=== PATIENT | female | born 1985 | race Caucasian/White ===

== ENCOUNTER 2020-08-01 19:57 | Emergency (ER) | payer SELFPAY ==
[~2020-08-01] VITALS: Ht 154.9 cm; Wt 53.1 kg
[2020-08-01 20:08] VITALS: BP 96/60
[2020-08-01 20:44] LABS: APPEARANCE,URINE HAZY (CLEAR); BILIRUBIN,URINE NEGATIVE (NEGATIVE); BLOOD, URINE 1+ (NEGATIVE); COLOR,URINE YELLOW (YELLOW); LEUKOCYTE ESTERASE ,URINE NEGATIVE (NEGATIVE); NITRITE, URINE NEGATIVE (NEGATIVE); UGLUCOSE NEGATIVE (NEGATIVE)
[2020-08-01 20:46] LABS: BASOPHILS # (AUTO) 0.1 K/uL (0.00-0.22); EOSINOPHILS # (AUTO) 0.1 K/uL (0-0.4); HEMOGLOBIN 8.6 g/dL (12.0-16.0); LYMPHOCYTES # (AUTO) 1.9 K/uL (2.5-16.5); LYMPHOCYTES % (AUTO) 40.9 % (20.5-51.1); MEAN CORPUSCULAR HEMOGLOBIN 22 pg (27-31); MEAN CORPUSCULAR HGB CONC 32 g/dL (33-37); MEAN CORPUSCULAR VOLUME 68.9 fL (80-94); MONOCYTES # (AUTO) 0.5 K/uL (0.8-1.0); NEUTROPHILS # (AUTO) 1.9 K/uL (1.8-7.7); NEUTROPHILS % (AUTO) 42.1 % (42.2-75.2); PLATELET COUNT (AUTO) 316 K/uL (140-450); RED BLOOD CELL COUNT(AUTO) 3.92 MIL/uL (4.20-5.40); RED CELL DISTRIBUTION WIDTH 16.5 % (11.6-13.7); WHITE BLOOD COUNT (AUTO) 4.6 K/uL (4.8-10.8)
[2020-08-01 20:49] LABS: WBC,URINE 0-5 /HPF (0-5)
[2020-08-01 20:58] LABS: ALBUMIN 3.6 g/dL (3.4-5.0); CARBON DIOXIDE 29.4 mmol/L (21-32); CREATININE 0.7 mg/dL (0.6-1.3); POTASSIUM 3.4 mmol/L (3.5-5.1); TOTAL BILIRUBIN 0.2 mg/dL (0.0-1.0)
[2020-08-01] MEDS ORDERED: DOXY100C9 PO (23:20)
[2020-08-01 23:35] VITALS: BP 100/63
== END 2020-08-01 23:35 | disposition home or self-care (01) ==
LOC: MED 19:57
DX: N83.202 Unspecified ovarian cyst, left side (principal); N83.201 Unspecified ovarian cyst, right side; Z88.5 Allergy status to narcotic agent; Z88.8 Allergy status to other drugs, medicaments and biological substances
CPT/HCPCS: 36415; 76856; 80053; 81001; 81025; 83690; 85025; 87086; 99284

== ENCOUNTER 2020-08-08 10:35 | Emergency (ER) | payer MEDICAID ==
[~2020-08-08] VITALS: Ht 154.9 cm; Wt 53.1 kg
[~2020-08-08 10:35] MED LIST: DOXY100C9 PO
[2020-08-08 10:45] VITALS: BP 106/54
--- NOTE | 2020-08-08 10:50 | NUR ---
35 Y/O FEMALE C/O LOWER ABD PAIN 11/22 DESCRIBED BURNING. PAIN RADIATES TO RIGHT AND LEFT FLANK X2 DAYS. PT REPORTS WHITE VAGINAL DISCHARGE PRESENT X2DAYS. PT STATES SHE WAS DX WITH CHLAMYDIA [id number] AGO AND PRESCRIBED ABX, AND HAS SINCE FINISHED PRESCRIPTION. DENIES PMH ALLERGIES: ACETAMINOPHEN, HYDROCODONE, MORPHINE
--- NOTE | 2020-08-08 11:36 | NUR ---
Patient being evaluated by Dr. Nguyễn at bedside.
[2020-08-08] MEDS ORDERED: KETOROLAC 30 MG/ML VIAL IM ONE (11:45)
[2020-08-08 11:55] LABS: APPEARANCE,URINE SL CLOUDY (CLEAR); BILIRUBIN,URINE NEGATIVE (NEGATIVE); BLOOD, URINE NEGATIVE (NEGATIVE); COLOR,URINE YELLOW (YELLOW); LEUKOCYTE ESTERASE ,URINE NEGATIVE (NEGATIVE); NITRITE, URINE NEGATIVE (NEGATIVE); UGLUCOSE NEGATIVE (NEGATIVE)
--- NOTE | 2020-08-08 11:57 | NUR ---
PELVIC TRAY SET UP AT BED SIDE
--- NOTE | 2020-08-08 12:12 | NUR ---
Ultrasound at bedside.
--- NOTE | 2020-08-08 12:13 | NUR ---
US AT BEDSIDE
[2020-08-08] MEDS ORDERED: NAPR-54 PO (14:57)
[2020-08-08] MEDS ORDERED: MICO45CR20 VG (14:57)
[2020-08-08 16:25] VITALS: BP 115/65
--- NOTE | 2020-08-08 16:25 | NUR ---
Patient discharged with v/s stable. Written and verbal after care instructions given and explained. Patient alert, oriented and verbalized understanding of instructions. Ambulatory with steady gait. All questions addressed prior to discharge. ID band removed. Patient advised to follow up with PMD. Rx of Miconazole Nitrate and Naproxen sent to her preferred pharmacy. Patient educated on indication of medication including possible reaction and side effects. Opportunity to ask questions provided and answered.
== END 2020-08-08 16:25 | disposition home or self-care (01) ==
LOC: MED 10:35
DX: N76.0 Acute vaginitis (principal); Z88.5 Allergy status to narcotic agent; Z88.8 Allergy status to other drugs, medicaments and biological substances; Z79.899 Other long term (current) drug therapy
CPT/HCPCS: 36415; 76856; 81003; 81025; 87210; 87491; 93976; 96372; 99284; J1885

== ENCOUNTER 2020-10-24 11:47 | Emergency (ER) | payer MEDICAID ==
[~2020-10-24] VITALS: Ht 154.9 cm; Wt 58.5 kg
[~2020-10-24 11:47] MED LIST changes: +MICO45CR20 VG; +NAPR-54 PO
[2020-10-24 12:03] VITALS: BP 126/76
--- NOTE | 2020-10-24 12:40 | NUR ---
[facility] in ED - 10/24/20 at 1356 by [email or web address] Female Full Time accompanied female patient for Pelvic Exam. WET MOUNT AND VAGINAL SAMPLES COLLECTED AND GIVEN TO YESSENIA MORGAN TECH
--- NOTE | 2020-10-24 12:59 | NUR ---
35 YEAR OLD FEMALE COMPLAINS OF MOUTH PAIN X 2 WEEKS. PT STATES THAT SHE HAS TROUBLE EATING WITH DYSPHAGIA. PT STATES PERFORMING GONORRHEA TREATMENT X 3 MONTHS. PT AOX4, BREATHING EVEN AND UNLABORED, SKIN WARM AND DRY. BED IN LOWEST POSITION, LOCKED, BED RAIL UPX1 PMH - GONORRHEA ALLERGIES - VICODIN
--- NOTE | 2020-10-24 13:40 | NUR ---
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 WET MOUNT AND VAGINAL SAMPLES COLLECTED AND GIVEN TO YESSENIA MORGAN
[2020-10-24] MEDS ORDERED: VALA1TAB42 PO (14:07)
--- NOTE | 2020-10-24 14:15 | NUR ---
PT ALERT AND AWAKE, BREATHING EVEN AND UNLABORED. NO DISTRESS NOTED.
[2020-10-24] MEDS ORDERED: IBUP-2213 PO (14:50)
[2020-10-24] MEDS ORDERED: AZITHROMYCIN 250 MG TAB PO ONE (14:55)
[2020-10-24] MEDS ORDERED: cefTRIAXone 500 MG in LIDOCAINE MPF 1% 1 ML IM ONE (14:55)
[2020-10-24] MEDS ORDERED: cefTRIAXone 500 MG VIAL ONE (14:58)
[2020-10-24] MEDS ORDERED: LIDOCAINE MPF 1% 5 ML ONE (14:59)
[2020-10-24 15:53] VITALS: BP 126/76
--- NOTE | 2020-10-24 15:53 | NUR ---
Patient discharged with v/s stable. Written and verbal after care instructions about cold sore, pelvic pain given and explained. Patient alert, oriented and verbalized understanding of instructions. Ambulatory with steady gait. All questions addressed prior to discharge. ID band removed. Patient advised to follow up with PMD. Rx of ibuprofen, valacyclovir given. Patient educated on indication of medication including possible reaction and side effects. Opportunity to ask questions provided and answered.
== END 2020-10-24 15:53 | disposition home or self-care (01) ==
LOC: MED 11:47
DX: B00.1 Herpesviral vesicular dermatitis (principal); Z11.3 Encounter for screening for infections with a predominantly sexual mode of transmission; Z79.899 Other long term (current) drug therapy; Z88.5 Allergy status to narcotic agent; Z88.6 Allergy status to analgesic agent; Z88.8 Allergy status to other drugs, medicaments and biological substances
CPT/HCPCS: 36415; 81002; 81025; 87210; 87491; 96372; 99283; J0696; J2001